=== PATIENT | female | born 1985 | race Caucasian/White ===

== ENCOUNTER → 2018-01-12 15:42 | Outpatient (CLI) | payer SELFPAY ==
[2018-01-16 11:19] LABS: QuantiFERON TB Negative (Negative)
== END ==
PROVIDERS: Visit Provider Registered Nurse
DX: Z11.1 Encounter for screening for respiratory tuberculosis (principal)
CPT/HCPCS: 36415; 86480

== ENCOUNTER → 2018-07-09 18:34 | Outpatient (CLI) | payer SELFPAY | PROVIDERS: Visit Provider Physician Assistant | DX: N89.8 Other specified noninflammatory disorders of vagina (principal) | CPT/HCPCS: 87210 ==

== ENCOUNTER → 2019-03-14 19:04 | Outpatient (CLI) | payer OTHER, SELFPAY | PROVIDERS: Visit Provider Physician Assistant | DX: N89.8 Other specified noninflammatory disorders of vagina (principal); R10.9 Unspecified abdominal pain; R35.8 Other polyuria | CPT/HCPCS: 87210 ==

== ENCOUNTER → 2019-05-16 07:37 | Outpatient (CLI) | payer OTHER, SELFPAY ==
[2019-05-16 08:38] LABS: Hematocrit 42.2 % (36-46); Hemoglobin 14.4 g/dL (12.0-16.0); Mean Corpuscular Hemoglobin 29.6 PG (26-34); Mean Corpuscular Volume 87.1 fL (80-100); Platelet Count 190 X10^3/uL (150-400); Red Blood Cell Count 4.85 X10^6/uL (4.0-5.2); White Blood Cell Count 5.9 X10^3/uL (4.5-11.0)
[2019-05-16 08:47] LABS: Appearance Urine UA CLEAR; Bilirubin Urine UA NEGATIVE (NEGATIVE); Color Urine UA YELLOW; Glucose Urine UA NEGATIVE (Negative); Ketones Urine UA NEGATIVE (NEGATIVE); Leukocyte Esterase Urine UA NEGATIVE (NEGATIVE); Nitrite Urine UA NEGATIVE (Negative); Occult Blood Urine UA NEGATIVE (Negative); Protein Urine UA NEGATIVE (Negative); Urobilinogen Urine UA 0.2 E.U./dL (0.2)
[2019-05-16 09:02] LABS: Bacteria Urine Moderate (10-30); Culture Indicated Urine Cult Not Indicated; RBC Urine 0-1/HPF (0-5/HPF); Squamous Epithelial Cell Urine 10-30 /HPF (0-5/HPF); WBC Urine 0-1/HPF (0-5/HPF)
[2019-05-16 09:17] LABS: Alanine Aminotransferase 16 IU/L (9-52); Albumin 4.2 g/dL (3.5-5.0); Albumin Globulin Ratio 1.3 (1.0-2.8); Alkaline Phosphatase 51 U/L (38-126); Aspartate Aminotransferase 20 IU/L (14-36); Bilirubin Total 1.2 mg/dL (0.2-1.3); Blood Urea Nitrogen 9 mg/dL (7-17); Calcium 9.6 mg/dL (8.4-10.2); Carbon Dioxide 26 mmol/L (22-32); Chloride 102 mmol/L (98-107); Cholesterol 162 mg/dL (140-199); Estimated Glomerular Filt Rate > 60.0 mL/min (>60); Globulin 3.2 g/dL (1.7-4.1); Glucose 87 mg/dL (70-100); HDL Cholesterol 61 mg/dL (40-60); HEMOLYSIS < 15 (0-50); LDL Cholesterol Calculated 89 mg/dL (<100); Potassium 3.9 mmol/L (3.4-5.1); Sodium 136 mmol/L (137-145); Total Protein 7.4 g/dL (6.3-8.2); Triglycerides 60 mg/dL (35-150)
[2019-05-16 09:32] LABS: Free T3, Triiodothyronine Free 3.66 pg/mL (2.77-5.27); Free T4, Direct Thyroxine 1.09 ng/dL (0.78-2.19)
[2019-05-16 09:39] LABS: Pregnancy Test Serum,Qual Positive (Negative)
[2019-05-16 09:46] LABS: Thyroid Stimulating Hormone 1.03 uIU/mL (0.47-4.68)
[2019-05-16 09:56] LABS: HCG Quantitative /Beta subunit 35039 mIU/mL
== END ==
PROVIDERS: Visit Provider Nurse Practitioner
DX: Z00.00 Encounter for general adult medical examination without abnormal findings (principal); Z34.90 Encounter for supervision of normal pregnancy, unspecified, unspecified trimester; Z32.01 Encounter for pregnancy test, result positive
CPT/HCPCS: 36415; 80053; 80061; 81001; 84439; 84443; 84481; 84702; 84703; 85027

== ENCOUNTER → 2019-05-20 16:04 | Outpatient (CLI) | payer OTHER, SELFPAY ==
[2019-05-20 17:42] LABS: HCG Quantitative /Beta subunit 54027 mIU/mL
== END ==
PROVIDERS: Visit Provider Nurse Practitioner
DX: O26.851 Spotting complicating pregnancy, first trimester (principal); Z32.01 Encounter for pregnancy test, result positive
CPT/HCPCS: 36415; 84702

== ENCOUNTER → 2019-05-22 15:48 | Outpatient (CLI) | payer OTHER, SELFPAY ==
[2019-05-22 18:50] LABS: HCG Quantitative /Beta subunit 75653 mIU/mL
== END ==
PROVIDERS: PCP Nurse Practitioner; Visit Provider Nurse Practitioner
DX: Z34.90 Encounter for supervision of normal pregnancy, unspecified, unspecified trimester (principal)
CPT/HCPCS: 36415; 84702

== ENCOUNTER → 2019-05-27 16:03 | Outpatient (CLI) | payer OTHER, SELFPAY ==
[2019-05-27 16:55] LABS: Add Manual Diff / Slide Review NO; Basophils Absolute Auto 0 /uL (0-100); Basophils Percent Auto 0.4 % (0-2); Eosinophils Absolute Auto 0 /uL (0-450); Eosinophils Percent Auto 0.3 % (2-4); Hematocrit 39.3 % (36-46); Hemoglobin 13.4 g/dL (12.0-16.0); Lymphocytes Absolute Auto 2100 /uL (1100-4500); Lymphocytes Percent Auto 29.7 % (25-40); Mean Corpuscular HGB Conc 34.1 % (30-36); Mean Corpuscular Hemoglobin 29.3 PG (26-34); Monocytes Absolute Auto 400 /uL (0-900); Monocytes Percent Auto 5.7 % (3-14); Neutrophils Absolute Auto 4600 /uL (1500-7000); Neutrophils Percent Auto 63.9 % (50-75); Platelet Count 204 X10^3/uL (150-400); Red Blood Cell Count 4.57 X10^6/uL (4.0-5.2); Red Cell Distribution Width 13.1 % (11.6-14.8); White Blood Cell Count 7.2 X10^3/uL (4.5-11.0)
[2019-05-27 16:58] LABS: Appearance Urine UA CLEAR; Bilirubin Urine UA NEGATIVE (NEGATIVE); Color Urine UA YELLOW; Glucose Urine UA NEGATIVE (Negative); Ketones Urine UA NEGATIVE (NEGATIVE); Leukocyte Esterase Urine UA NEGATIVE (NEGATIVE); Nitrite Urine UA NEGATIVE (Negative); Occult Blood Urine UA NEGATIVE (Negative); Protein Urine UA NEGATIVE (Negative); Specific Gravity Urine UA <=1.005 (1.000-1.035); Urobilinogen Urine UA 0.2 E.U./dL (0.2)
[2019-05-27 17:03] LABS: pH Urine UA 5.5 (4.5-8.0)
[2019-05-27 18:17] LABS: Hepatitis B Surface Antigen NEGATIVE s/c (NEGATIVE)
[2019-05-27 18:25] LABS: HIV 1 & 2 Ab/Ag 4th Gen Combo NEGATIVE (NEGATIVE); Hep C Virus Ab w/Reflex Quant NEGATIVE s/c (NEGATIVE)
[2019-05-30 13:51] LABS: RPR Screen Nonreactive (Nonreactive)
[2019-05-30 14:54] LABS: HSV 1 IgM Screen Negative (Negative); HSV 2 IgM Screen Negative (Negative)
== END ==
PROVIDERS: PCP Nurse Practitioner; Visit Provider Family Medicine
DX: Z34.01 Encounter for supervision of normal first pregnancy, first trimester (principal)
CPT/HCPCS: 36415; 80055; 81003; 86695; 86696; 86787; 86803; 86850; 86900; 86901; 87086; 87389

== ENCOUNTER → 2019-05-29 09:38 | Outpatient (CLI) | payer OTHER, SELFPAY ==
--- NOTE | 2019-05-29 09:39 | DI.US.S_ITS ---
PROCEDURE: US OB <= 14 WEEKS FETUS INDICATIONS: DATING AND VIABILITY OUTSIDE/PRIOR DATING DATA: Last menstrual period (LMP): 03/21/19. LMP-based estimated date of delivery (KRISTINA): 12/26/19. First dating scan (date and location): 05/29/19. Estimated date of delivery (KRISTINA) from first dating scan: 01/03/20. TECHNIQUE: Real-time scanning was performed of the fetus and maternal pelvic organs, with image documentation. Endovaginal scanning was also performed to better visualize the fetus and maternal ovaries. COMPARISON: None. FINDINGS: Embryo: Single living intrauterine gestation with crown-rump length measuring 2.1 cm. This correlates with approximately 8 weeks and 5 days gestational age. heart rate measures 171 beats per minute. Measurement variability in dating: +/- 4 weeks by LMP, +/- 7 days by mean sac diameter (use before 6 weeks gestation if crown-rump length not able to be measured), +/- 5 days by crown-rump length (up to 8 weeks 6 days gestation), +/- 7 days by crown-rump length (up to 13 weeks 6 days gestation). Maternal organs: Right ovary was not visualized. Left ovary appears normal. Limited images through the kidneys demonstrate no hydronephrosis. IMPRESSION: Single living intrauterine gestation with an estimated sonographic gestational age of approximately 8 weeks and 5 days. Recommend routine followup second trimester anatomic screening survey. Dictated by: Mauri Mari M.D. on 05/29/2019 at 13:39 Approved by: Muari Mari M.D. on 05/29/2019 at 13:42
== END ==
PROVIDERS: PCP Nurse Practitioner; Visit Provider Family Medicine
DX: Z34.01 Encounter for supervision of normal first pregnancy, first trimester (principal); Z3A.08 8 weeks gestation of pregnancy
CPT/HCPCS: 76801; 76817

== ENCOUNTER → 2019-07-30 15:23 | Outpatient (CLI) | payer OTHER, SELFPAY ==
[2019-08-12 10:35] LABS: AFP, Serum 52.4; Calc Gestational Age 17.6
[2019-08-12 10:36] LABS: hCG, MoM 1.26; hCG, Serum 19.6
[2019-08-12 10:37] LABS: Estriol, Free 1.28
[2019-08-12 10:38] LABS: Inhibin A, Dimeric 160
[2019-08-12 10:39] LABS: Cigarette Smoker NO; Donated Egg NO; Maternal Weight 143; Number of Fetuses 1; Previous Pregnancy Down Syndro NO
== END ==
PROVIDERS: PCP Nurse Practitioner; Visit Provider Family Medicine
DX: Z34.92 Encounter for supervision of normal pregnancy, unspecified, second trimester (principal); Z3A.16 16 weeks gestation of pregnancy
CPT/HCPCS: 36415; 82105; 82677; 84702; 86336

== ENCOUNTER → 2019-08-15 10:55 | Outpatient (CLI) | payer OTHER, SELFPAY ==
--- NOTE | 2019-08-15 10:57 | DI.US.S_ITS ---
PROCEDURE: US OB >= 14 WEEKS FETUS INDICATIONS: ANATOMY SCAN OUTSIDE/PRIOR DATING DATA: Last menstrual period (LMP): 03/21/19. LMP-based estimated date of delivery (KRISTINA): 12/26/19. First dating scan (date and location): 05/29/19. Estimated date of delivery (KRISTINA) from first dating scan: 01/03/20. TECHNIQUE: Real-time scanning was performed of the fetus, with image documentation and biometric measurements. COMPARISON: None. FINDINGS: General: A single living intrauterine gestation is present. Presentation: Vertex. Placenta: Placental position is anterior, and low-lying. Amniotic fluid index: 16.7 cm, normal range is 5-24 cm. heart rate: 150 beats per minute. Maternal cervical canal: 4.6 cm long. Normal lower limit is 2.5 cm. biometrics: Biparietal diameter: 20 weeks 6 days Head circumference: 20 weeks 1 day Abdominal circumference: 20 weeks 4 days Femur length: 19 weeks 5 days Estimated gestational age from initial scan: 19 weeks 6 days Composite gestational age from present scan: 20 weeks 2 days Estimated weight and percentile: 339 g; 66 percentile Measurement variability for biometric dating: +/- 7 days from 14 weeks to 15 weeks 6 days gestation, +/- 10 days from 16 weeks to 21 weeks 6 days gestation, +/- 2 weeks from 22 weeks to 27 weeks 6 days gestation, +/- 3 weeks for 28 weeks gestation or later. weight reference: 4500 g or EFW >90/95% is considered macrosomia or large for gestational age. EFW <10% is small for gestational age. EFW 5% or less is considered intra-uterine growth restriction. Anatomic survey: Neuro: Ventricles are non-dilated at less than 10 mm. Posterior fossa not well visualized. Nuchal skin fold: Normal at less than 6 mm between 14-21 weeks gestational age. Face: Nose and lips, facial profile are normal. Spine: No evidence for spina bifida. Heart: 4-chambered heart is present, with normal ventricular outflow tracts. Diaphragm: Diaphragm is intact. Stomach: Left-sided stomach is present. Kidneys: Mild pyelectasis of the left kidney with the renal pelvis measuring 4.8 mm. Cord: 3-vessel cord has orthotopic insertion. Bladder: Normal in size. Extremities: All 4 extremities identified. IMPRESSION: 1. Single living IUP redemonstrated and interval growth is normal. 2. Posterior fossa not well visualized. Followup recommended. 3. Mild left renal pyelectasis which can be assessed on followup examination. 4. Low-lying placenta. Dictated by: Rick Orantes [facility] Interpreted: Jen Bain MD on 08/15/2019 at 16:20 Approved by: Jen Bain M.D. on 08/15/2019 at 16:38
== END ==
PROVIDERS: PCP Nurse Practitioner; Visit Provider Family Medicine
DX: Z36.89 Encounter for other specified antenatal screening (principal); O99.89 Other specified diseases and conditions complicating pregnancy, childbirth and the puerperium; N13.30 Unspecified hydronephrosis; Z3A.20 20 weeks gestation of pregnancy
CPT/HCPCS: 76811

== ENCOUNTER → 2019-09-13 11:36 | Outpatient (CLI) | payer OTHER, SELFPAY ==
--- NOTE | 2019-09-13 11:37 | DI.US.S_ITS ---
PROCEDURE: US OB LIMITED INDICATIONS: FOLLOW UP PLACENTA, KIDNEYS, POSTERIOR FOSSA OUTSIDE/PRIOR DATING DATA: Last menstrual period (LMP): 03/21/19. LMP-based estimated date of delivery (KRISTINA): 12/26/19. First dating scan (date and location): 05/29/19. Estimated date of delivery (KRISTINA) from first dating scan: 01/03/20. TECHNIQUE: Real-time scanning was performed of the fetus, with image documentation. Endovaginal scanning: No COMPARISON: [facility], OB >= 14 WEEKS FETUS, 08/15/2019, 11:20. FINDINGS: A single living intrauterine gestation is present. Presentation: Vertex. Placenta: Placental position is anterior, without previa. Amniotic fluid index: 13.9 cm, normal range is 5-24 cm. heart rate: 143 beats per minute. Maternal cervical canal: 3.4 cm long. Normal lower limit is 2.5 cm. Estimated gestational age from initial scan: 24 weeks. Normal appearance of the posterior fossa and cerebellum. Mild left renal pyelectasis with a renal pelvis measuring 5 mm. IMPRESSION: 1. Single living IUP redemonstrated and today's exam demonstrates normal appearance of the posterior fossa and cerebellum. There is continued mild left renal pyelectasis and continued sonographic surveillance is recommended. 2. Low lying placenta has resolved. Dictated by: Rick Orantes [facility] Interpreted: Cory Vyas MD on 09/13/2019 at 15:19 Approved by: Cory Vyas M.D. on 09/13/2019 at 18:48
== END ==
PROVIDERS: PCP Nurse Practitioner; Referring Provider Family Medicine; Visit Provider Family Medicine
DX: O99.89 Other specified diseases and conditions complicating pregnancy, childbirth and the puerperium (principal); N13.30 Unspecified hydronephrosis; Z3A.24 24 weeks gestation of pregnancy
CPT/HCPCS: 76815

== ENCOUNTER → 2019-10-02 08:02 | Outpatient (CLI) | payer OTHER, SELFPAY ==
[2019-10-02 10:41] LABS: Hematocrit 37.2 % (36-46); Hemoglobin 12.4 g/dL (12.0-16.0)
[2019-10-02 11:39] LABS: GTT (PREG) 1 Hour PP 50gm Dose 85 mg/dL (76-139)
== END ==
PROVIDERS: PCP Nurse Practitioner; Referring Provider Family Medicine; Visit Provider Family Medicine
DX: Z34.90 Encounter for supervision of normal pregnancy, unspecified, unspecified trimester (principal); Z3A.26 26 weeks gestation of pregnancy
CPT/HCPCS: 36415; 82950; 85014; 85018

== ENCOUNTER → 2019-10-11 16:25 | Outpatient (CLI) | payer OTHER, SELFPAY | PROVIDERS: PCP Nurse Practitioner; Referring Provider Family Medicine; Visit Provider Family Medicine | DX: Z34.90 Encounter for supervision of normal pregnancy, unspecified, unspecified trimester (principal); Z67.31 Type AB blood, Rh negative | CPT/HCPCS: 36415; 86850 ==

== ENCOUNTER → 2019-11-08 09:01 | Outpatient (CLI) | payer OTHER, SELFPAY ==
[2019-11-13 09:08] LABS: QuantiFERON Mitogen Value >10.00 IU/mL (.); QuantiFERON Nil Value 0.02 IU/mL (.); QuantiFERON TB Gold Plus Negative (Negative); QuantiFERON TB1 Ag Value 0.02 IU/mL (.); QuantiFERON TB2 Ag Value 0.04 IU/mL (.)
== END ==
PROVIDERS: PCP Nurse Practitioner; Referring Provider Internal Medicine; Visit Provider Internal Medicine
DX: R76.11 Nonspecific reaction to tuberculin skin test without active tuberculosis (principal)
CPT/HCPCS: 36415; 86480

== ENCOUNTER → 2020-01-14 11:17 | Outpatient (CLI) | payer OTHER, SELFPAY ==
--- NOTE | 2020-01-14 | DI.US.S_ITS ---
PROCEDURE: US OB LIMITED INDICATIONS: DMITRIY OUTSIDE/PRIOR DATING DATA: Last menstrual period (LMP): 03/21/19. LMP-based estimated date of delivery (KRISTINA): 12/26/19. First dating scan (date and location): 05/29/19. Estimated date of delivery (KRISTINA) from first dating scan: 01/03/20. TECHNIQUE: Real-time scanning was performed of the fetus, with image documentation and biometric measurements. Endovaginal scanning: Not performed COMPARISON: [facility], OB >= 14 WEEKS FETUS, 08/15/2019, 11:20. [facility] OB <= 14 WEEKS FETUS, 05/29/2019, 10:33. [facility] OB LIMITED, 09/13/2019, 11:54. FINDINGS: General: A single living intrauterine gestation is present. Presentation: Vertex. Placenta: Placental position is anterior Amniotic fluid index: 9.5 cm, normal range is 5-24 cm. heart rate: 165 beats per minute. Maternal cervical canal: 2.9 cm long. Normal lower limit is 2.5 cm. Other: Not applicable. IMPRESSION: Single living intrauterine fetus in vertex presentation DMITRIY measures 9.5 cm Dictated by: Ross Gomez M.D. on 01/14/2020 at 12:56 Approved by: Ross Gomez M.D. on 01/14/2020 at 13:02
== END ==
PROVIDERS: PCP Nurse Practitioner; Referring Provider Midwife; Visit Provider Midwife
DX: Z36.89 Encounter for other specified antenatal screening (principal); Z3A.41 41 weeks gestation of pregnancy
CPT/HCPCS: 76815

== ENCOUNTER → 2020-03-28 14:45 | Outpatient (ROUT) | payer OTHER, SELFPAY ==
[2020-03-30 11:12] LABS: COVID19 Sendout Not Detected (Not Detected)
== END ==
PROVIDERS: PCP Family Medicine; Visit Provider Internal Medicine
DX: Z11.59 Encounter for screening for other viral diseases (principal)
CPT/HCPCS: 87635

== ENCOUNTER → 2022-06-18 13:21 | Outpatient (CLI) | payer OTHER, SELFPAY | PROVIDERS: PCP Family Medicine; Visit Provider Physician Assistant | DX: N39.0 Urinary tract infection, site not specified (principal); N89.8 Other specified noninflammatory disorders of vagina | CPT/HCPCS: 87077; 87086; 87147; 87210 ==

== ENCOUNTER 2023-06-06 11:56 | Emergency (ER) | payer OTHER, SELFPAY ==
[2023-06-06 12:09] VITALS: BP 149/83; PULSE 117; RESP 18; TEMP 37.4; O2SAT 100; BMI 21.6
[2023-06-06 12:47] VITALS: PULSE 89; O2SAT 98
[2023-06-06 12:49] VITALS: BP 142/90; PULSE 107; O2SAT 100
[2023-06-06 12:55] LABS: Add Manual Diff / Slide Review NO; Basophils Absolute Auto 0 /uL (0-100); Basophils Percent Auto 0.5 % (0-2); Eosinophils Absolute Auto 0 /uL (0-450); Eosinophils Percent Auto 0.1 % (2-4); Hematocrit 43.2 % (36-46); Hemoglobin 14.6 g/dL (12.0-16.0); Lymphocytes Absolute Auto 1300 /uL (1100-4500); Lymphocytes Percent Auto 22.2 % (25-40); Mean Corpuscular HGB Conc 33.7 % (30-36); Mean Corpuscular Hemoglobin 28.8 PG (26-34); Mean Corpuscular Volume 85.3 fL (80-100); Monocytes Absolute Auto 300 /uL (0-900); Monocytes Percent Auto 4.3 % (3-14); Neutrophils Absolute Auto 4300 /uL (1500-7000); Neutrophils Percent Auto 72.9 % (50-75); Platelet Count 222 X10^3/uL (150-400); Red Blood Cell Count 5.07 X10^6/uL (4.0-5.2); Red Cell Distribution Width 13.6 % (11.6-14.8)
[2023-06-06 13:00] VITALS: BP 149/90; PULSE 115; RESP 25; O2SAT 100
[2023-06-06 13:04] LABS: COVID19 -Nasal RAPID Negative (Negative)
[2023-06-06 13:08] LABS: Bacteria Urine Moderate (10-30); Culture Indicated Urine Specimen Cultured; RBC Urine None Seen (0-5/HPF); Squamous Epithelial Cell Urine 5-10 /HPF (0-5/HPF); WBC Urine 1-5/HPF (0-5/HPF)
--- NOTE | 2023-06-06 13:19 | ED_ITS ---
HPI - Dizziness General Chief Complaint: Dizziness Stated Complaint: dizzy/fast HR Time Seen by Provider: 06/06/23 12:48 Source: patient Mode of arrival: Ambulatory History of Present Illness HPI Narrative: 37 year old female with no reported past medical history presents with 2 days of intermittent lightheadedness and palpitations. Patient states that at various points throughout the day she can feel her heartbeat ?pounding? and she feels like she is about to pass out. She states that she will get ?tunnel vision? and feel very lightheaded. This improves after sitting down and resting. She went to walk-in clinic, but was referred to the emergency department. Currently asymptomatic. Heart rate elevated, patient states she does get anxious in healthcare settings. Related Data Home Medications Medication Instructions Recorded Confirmed prenat.vits,melina,[id number] 1 tab PO DAILY 05/27/19 09/21/22 Previous Rx's Medication Instructions Recorded valacyclovir 500 mg tablet 500 mg PO DAILY #90 tabs 07/25/22 cyclobenzaprine 5 mg tablet 5 mg PO TID PRN muscle spasm #20 09/21/22 tabs Allergies Allergy/AdvReac Type Severity Reaction Status Date / Time No Known Drug Allergies Allergy Verified 06/06/23 12:07 Review of Systems Review of Systems Narrative: CONSTITUTIONAL- Denies: fever, chills, fatigue HEENT- Denies: sore throat, nosebleed, vision changes RESPIRATORY- Denies: shortness of breath, cough, wheezing CARDIAC-reports: Palpitations Denies: chest pain, edema, orthopnea GI- Denies: abdominal pain, nausea, vomiting, constipation, diarrhea - Denies: frequency, dysuria, hematuria, flank pain MSK- Denies: extremity pain, extremity swelling, joint pain, joint swelling SKIN- Denies: rash, itching, burn, swelling NEUROLOGICAL-reports: Lightheadedness Denies: headache, numbness, weakness, dizziness PSYCHIATRIC- Denies: anxiety, depression, suicidal ideation, homicidal ideation Patient History Medical History Chlamydia Genital herpes HSV (herpes simplex virus) infection (~2005) Positive TB test Trichomonosis Umbilical hernia Surgical History H/O umbilical hernia repair (~1991) Family History Mother Hx of cardiac arrhythmia Social History (Updated 05/14/19 @ 14:02 by Kandy Harrington CMA) marital status: household members: spouse and family pets and animals: Yes education level: college occupational status: employed current occupational exposures/hazards: 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) seatbelt use: always helmet use: Yes water heater temp set < 120 deg: Yes working smoke detector in home: Yes fire extinguisher in home: Yes carbon monox detector in home: No firearms in home: No do you feel safe at home: Yes Smoking Status: Never smoker alcohol intake: current substance use type: does not use during the past year weight has: remained stable well-balanced diet: daily or most days daily servings fruits/ve-4 caffeine: Yes (1-2 DRINKS PER DAY; NEVER TO SODA) eating out: rarely or never Type(s) of exercise: walking, bicycling, other and yoga frequency: 3-4 times per week duration: 45-60 minutes/day Smoking Status: Never smoker Substance Use Type: does not use Exam Narrative Exam Narrative: Const: Awake, alert, no acute distress, nontoxic appearing Eyes: PERRL, EOMI, conjunctiva normal ENT: Atraumatic, dentition normal, mucous membranes moist Cardiac: Tachycardia, regular rhythm RESP: unlabored, clear bilaterally, no wheezing GI: Atraumatic, soft, nontender, nondistended, no rebound, no guarding MSK: Atraumatic, full range of motion, pulses equal Skin: Warm, Dry, intact, no rashes Neuro: AO x3, CN II-XII grossly intact, moves all extremities Psych: affect normal, mood normal, not suicidal, not homicidal Initial Vital Signs Initial Vital Signs: Vital Signs Temperature 99.4 F 06/06/23 12:09 Pulse Rate 117 H 06/06/23 12:09 Respiratory Rate 18 06/06/23 12:09 Blood Pressure 149/83 H 06/06/23 12:09 Pulse Oximetry 100 06/06/23 12:09 Oxygen Delivery Method Room Air 06/06/23 12:09 Scores PERC Score Age greater than or equal to 50 years: No Heart rate greater than or equal to 100 bpm: Yes Room Air O2 Sat less than 95%: No Unilateral leg swelling: No Recent trauma or surgery: No Hemoptysis: No Prior PE or DVT: No Hormone Use: No Total PERC Score: 1 Course Course Course Narrative: Well-appearing patient with intermittent palpitations and lightheadedness. Heart rate is currently mildly elevated, however patient reports anxiety in healthcare settings and she is currently slightly nervous that she was directed to the emergency department. Can not rule out with PERC rule due to elevated heart rate, we will order D-dimer, however with lack of other PE risk factors overall considered low risk. Orders Ordered: ED Orders 06/06/23 12:25 EKG-12 Lead Stat 06/06/23 12:37 Basic Metabolic Panel Stat COVID19 -Nasal RAPID Stat Complete Blood Count AUTO DIFF Stat D Dimer Stat TSH [Thyroid Stimulating Hormone] Stat Troponin I Stat 06/06/23 12:43 Urine Culture Stat Urine Microscopic Stat Reevaluation(s) Reevaluation #1: Laboratory work is reviewed, unremarkable. D-dimer negative. TSH within normal limits. Chest x-ray negative for acute findings. Patient resting comfortably in ED bed, when at rest her heart rate dropped to 70 beats per minute, regular, no abnormality seen on cardiac rehabilitation specialist. Patient informed of labs and imaging results at bedside, uncertain etiology of patient's palpitations, however stable for discharge with routine follow up with PCP. ED return precautions discussed at bedside. Patient expressed understanding of the plan and is in agreement at this time. All questions answered at the time of discharge. Vital Signs Vital signs: Vital Signs - 8 hr 06/06/23 12:09 06/06/23 12:47 06/06/23 12:49 Temperature 99.4 F Pulse Rate 117 H 89 107 H Respiratory Rate 18 Blood Pressure 149/83 H Pulse Oximetry 100 98 100 Oxygen Delivery Method Room Air 06/06/23 12:49 06/06/23 13:00 06/06/23 13:00 Temperature Pulse Rate 115 H Respiratory Rate 25 H Blood Pressure 142/90 H 149/90 H Pulse Oximetry 100 Oxygen Delivery Method 06/06/23 13:30 06/06/23 13:30 06/06/23 14:00 Temperature Pulse Rate 83 94 H Respiratory Rate 24 23 Blood Pressure 130/63 Pulse Oximetry 100 99 Oxygen Delivery Method MDM - Dizziness Differential Diagnosis Differential diagnosis: Likely benign paroxysmal positional vertigo, orthostatic hypotension and other (hyperthyroidism) Lab Data 06/06/23 12:37 06/06/23 12:37 Labs: Lab Results 06/06/23 06/06/23 Range/Units 12:37 12:43 WBC 6.0 (4.5-11.0) X10^3/uL RBC 5.07 (4.0-5.2) X10^6/uL Hgb 14.6 (12.0-16.0) g/dL Hct 43.2 (36-46) % MCV 85.3 (80-100) fL MCH 28.8 (26-34) PG MCHC 33.7 (30-36) % RDW 13.6 (11.6-14.8) % Plt Count 222 (150-400) X10^3/uL Neut % (Auto) 72.9 (50-75) % Lymph % (Auto) 22.2 L (25-40) % [place] % (Auto) 4.3 (3-14) % Eos % (Auto) 0.1 L (2-4) % Baso % (Auto) 0.5 (0-2) % Neut # (Auto) 4300 (5617-6854) /uL Lymph # (Auto) 1300 (4264-3352) /uL [place] # (Auto) 300 (0-900) /uL Eos # (Auto) 0 (0-450) /uL Baso # (Auto) 0 (0-100) /uL D-Dimer 246 (<500) ng/ml Sodium 138 (137-145) mmol/L Potassium 3.8 (3.4-5.1) mmol/L Chloride 105 (98-107) mmol/L Carbon Dioxide 23 (22-32) mmol/L BUN 13 (7-17) mg/dL Creatinine 0.53 (0.52-1.04) mg/dL Estimated GFR > 60 (>60) mL/min BUN/Creatinine Ratio 24.5 H (6-22) Glucose 117 H (70-100) mg/dL Calcium 9.9 (8.4-10.2) mg/dL Troponin I < 0.012 (0.01-0.034) ng/mL TSH 2.10 (0.47-4.68) uIU/mL Urine RBC None seen (0-5/HPF) Urine WBC 1-5/hpf (0-5/HPF) Ur Squamous Epith Cells 5-10 /hpf H (0-5/HPF) Urine Bacteria Moderate (10-30) H (None) Ur Culture Indicated? Specimen cultured SARS-CoV-2 (PCR) Negative (Negative) Point of Care Testing Test Results Negative Urine Dip Bedside Urine Glucose Negative Bedside Urine Bilirubin - Negative Bedside Urine Ketone - Negative Urine Specific [place] 1.015 Bedside Urine Occult Blood +/- Bedside Urine pH 6.0 Bedside Urine Protein - Negative Bedside Urine Urobilinogen - Negative Bedside Urine Nitrite - Negative Bedside Urine Leukocytes + 70 Esterase Discharge Plan Departure Patient Disposition: Home Clinical Impression: Palpitations Instructions: DI for Palpitations Prescriptions: No Action prenat.vits,melina,[id number] Tablet 1 tab PO DAILY cyclobenzaprine 5 mg tablet 5 mg PO TID PRN (Reason: muscle spasm) Qty: 20 0RF valacyclovir 500 mg tablet 500 mg PO DAILY Qty: 90 0RF Rx Instructions: Take one tablet by mouth daily after completing higher dose therapy for 7 days. Referrals: Amy Jarvis DO [Physician] - Miscellaneous,Doctor MD [Primary Care Provider] - Stand Alone Forms: Patient Portal/API
[2023-06-06 13:30] VITALS: BP 130/63; PULSE 83; RESP 24; O2SAT 100
[2023-06-06 13:33] LABS: D Dimer 246 ng/ml (<500)
[2023-06-06 14:00] VITALS: PULSE 94; RESP 23; O2SAT 99
[2023-06-06 14:03] LABS: BUN Creatinine Ratio 24.5 (6-22); Blood Urea Nitrogen 13 mg/dL (7-17); Calcium 9.9 mg/dL (8.4-10.2); Carbon Dioxide 23 mmol/L (22-32); Chloride 105 mmol/L (98-107); Estimated Glomerular Filt Rate > 60 mL/min (>60); Glucose 117 mg/dL (70-100); HEMOLYSIS 39 (0-50); Potassium 3.8 mmol/L (3.4-5.1); Sodium 138 mmol/L (137-145)
[2023-06-06 14:15] LABS: Troponin I < 0.012 ng/mL (0.01-0.034)
== END 2023-06-06 14:33 | disposition home or self-care (01) ==
PROVIDERS: Emergency Provider Emergency Medicine
DX: R00.2 Palpitations (principal); Z20.822 Contact with and (suspected) exposure to COVID-19
CPT/HCPCS: 36415; 80048; 81003; 81015; 81025; 84443; 84484; 85025; 85379; 87086; 87635; 93005; 99284; C9803

== ENCOUNTER 2023-06-14 13:00 | Emergency (ER) | payer OTHER, SELFPAY ==
[2023-06-14 13:03] VITALS: BP 162/100; PULSE 120; RESP 16; TEMP 36.9; O2SAT 100; BMI 21.6
--- NOTE | 2023-06-14 13:58 | ED.ARRPALP ---
HPI - Arrhythmia/Palpitations General Chief Complaint: Arrhythmia/Palpitations Stated Complaint: dizzy/high bp 165/111 pulse 126 shivering Time Seen by Provider: 06/14/23 13:43 Source: patient Mode of arrival: Ambulatory Limitations: no limitations History of Present Illness HPI narrative: Otherwise healthy 37-year-old female who is here for evaluation of being dizzy, shivering, increased blood pressure and palpitations. She states the symptoms happened while she was at work today. 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 This is very similar to symptoms she had 1 week ago where she had an unremarkable workup here in the ER and was told to follow up with her primary doctor. She does admit that there is anxiety component to her symptoms. She is currently feel like her heart is beating fast but better than what it was. Related Data Home Medications Medication Instructions Recorded Confirmed prenat.vits,melina,[id number] 1 tab PO DAILY 05/27/19 09/21/22 Previous Rx's Medication Instructions Recorded valacyclovir 500 mg tablet 500 mg PO DAILY #90 tabs 07/25/22 cyclobenzaprine 5 mg tablet 5 mg PO TID PRN muscle spasm #20 09/21/22 tabs Allergies Allergy/AdvReac Type Severity Reaction Status Date / Time No Known Drug Allergies Allergy Verified 06/14/23 13:07 Review of Systems Constitutional Constitutional: Reports system reviewed and no additional complaints, except as documented Cardiovascular Cardiovascular: Reports system reviewed and no additional complaints, except as documented Respiratory Respiratory: Reports system reviewed and no additional complaints, except as documented Gastrointestinal Gastrointestinal: Reports system reviewed and no additional complaints, except as documented Psychiatric Psychiatric: Reports system reviewed and no additional complaints, except as documented Patient History Medical History Trichomonosis Chlamydia Genital herpes Umbilical hernia Positive TB test HSV (herpes simplex virus) infection (~2005) Surgical History H/O umbilical hernia repair (~1991) Family History Mother Hx of cardiac arrhythmia Social History marital status: household members: spouse and family pets and animals: Yes education level: college occupational status: employed current occupational exposures/hazards: No ([employer]) seatbelt use: always helmet use: Yes water heater temp set < 120 deg: Yes working smoke detector in home: Yes fire extinguisher in home: Yes carbon monox detector in home: No firearms in home: No do you feel safe at home: Yes Smoking Status: Never smoker alcohol intake: current substance use type: does not use during the past year weight has: remained stable well-balanced diet: daily or most days daily servings fruits/ve-4 caffeine: Yes (1-2 DRINKS PER DAY; NEVER TO SODA) eating out: rarely or never Type(s) of exercise: walking, bicycling, other and yoga frequency: 3-4 times per week duration: 45-60 minutes/day Smoking Status: Never smoker Substance Use Type: does not use Exam Initial Vital Signs Initial Vital Signs: Vital Signs Temperature 98.4 F 06/14/23 13:03 Pulse Rate 120 H 06/14/23 13:03 Respiratory Rate 16 06/14/23 13:03 Blood Pressure 162/100 H 06/14/23 13:03 Pulse Oximetry 100 06/14/23 13:03 Oxygen Delivery Method Room Air 06/14/23 13:03 Const General: cooperative, comfortable and No ill appearing HENMT Head: normal to inspection and normocephalic Resp Effort & Inspection: normal respiratory effort Auscultation: clear to auscultation bilaterally Cardio Rhythm: regular rhythm GI Inspection: normal to inspection Skin General: no rashes or lesions noted Neuro General: patient alert, patient awake, patient oriented x3 and moves all extremities Course Orders Ordered: ED Orders 06/14/23 13:07 EKG-12 Lead Stat 06/14/23 13:58 Consult to [facility] [employer] [facility] [employer] Stat Discontinued Medications Lorazepam (Lorazepam 0.5 Mg Tablet) 1 mg PO NOW ONE Stop: 06/14/23 13:59 Last Admin: 06/14/23 14:37 Dose: Not Given Documented By: MARK Vital Signs Vital signs: Vital Signs - 8 hr 06/14/23 13:03 06/14/23 14:27 Temperature 98.4 F Pulse Rate 120 H 83 Respiratory Rate 16 16 Blood Pressure 162/100 H 131/85 Pulse Oximetry 100 99 Oxygen Delivery Method Room Air Room Air MDM - Arrhythmia/Palpitations ECG Data Attestation: I personally reviewed and interpreted this ECG as follows: Interpretation: Sinus tachycardia Ventricular rate 109 Normal axis Normal QRS Nonspecific ST T wave changes MDM Narrative Medical decision making narrative: Patient declined further workup to include an IV and blood work here in the ER. Offered Ativan but patient states she would like to return to work and she does not have a ride home. Social work was able to speak with the patient. We were able to secure an appointment tomorrow with primary provider. Will discharge patient home with follow-up instructions. Discharge Plan Departure Patient Disposition: Home Clinical Impression: Palpitations Activity Restrictions/Additional Instructions: You do have an appointment tomorrow 06/15 with Yesica CORONA at 4:15 in the afternoon. Recommend that you continue any medications as directed. You can talk with your primary provider about the indications for a Holter monitor. Return to the emergency department for new symptoms. Prescriptions: No Action prenat.vits,melina,[id number] Tablet 1 tab PO DAILY cyclobenzaprine 5 mg tablet 5 mg PO TID PRN (Reason: muscle spasm) Qty: 20 0RF valacyclovir 500 mg tablet 500 mg PO DAILY Qty: 90 0RF Rx Instructions: Take one tablet by mouth daily after completing higher dose therapy for 7 days. Referrals: Miscellaneous,Doctor, MD [Primary Care Provider] - Stand Alone Forms: Patient Portal/API
--- NOTE | 2023-06-14 14:21 | CM.SWNOTE ---
ED CNC MAINTENANCE TECHNICIAN Note CNC MAINTENANCE TECHNICIAN receives consult due to patient's 2nd presentation in a week due to dizziness & palpitations. Patient is 37 y/o female who presents to ED due to episode of high heart rate and dizziness while at work. Patient works [employer] and [employer]. Patient has new PCP appt scheduled with Dr. Nidia Drake for 07/25/23. CNC MAINTENANCE TECHNICIAN enters room to meet with patient, patient presents as A/Ox4. When asked about life stressors, patient presents as tearful and states she is emotional because she is currently menstruating. Patient endorses she has family members in [place] [facility] during the war and she is constantly worrying about them but subsides her worry most days. Patient states she has contact with family but does not want to cause them more worry. Patient endorses she has support from spouse and mother in law, patient states she is safe at home. CNC MAINTENANCE TECHNICIAN offers to schedule sooner PCP appt for patient, patient indicates agreement. CNC MAINTENANCE TECHNICIAN [email or web address] and schedules ED f/u with Yesica Waddell PA-C for tomorrow 06/15 at 4:15pm check in. CNC MAINTENANCE TECHNICIAN provides patient with this information, patient indicates understanding. Patient denies any further CNC MAINTENANCE TECHNICIAN needs at this time. Plan: Patient to d/c to home upon medical clearance, patient to f/u with PCP office appt tomorrow. CARMEN Pond
[2023-06-14 14:27] VITALS: BP 131/85; PULSE 83; RESP 16; O2SAT 99
== END 2023-06-14 14:47 | disposition home or self-care (01) ==
PROVIDERS: Emergency Provider Emergency Medicine
DX: R00.2 Palpitations (principal)
CPT/HCPCS: 93005; 99281; 99282

== ENCOUNTER → 2023-07-03 09:39 | Outpatient (CLI) | payer OTHER, SELFPAY | PROVIDERS: Referring Provider Physician Assistant; Visit Provider Physician Assistant | DX: R00.2 Palpitations (principal) | CPT/HCPCS: 93246 ==

== ENCOUNTER → 2025-02-13 14:54 | Outpatient (CLI) | payer OTHER, MEDICAID, SELFPAY | PROVIDERS: PCP Family Medicine; Referring Provider Family Medicine; Visit Provider Family Medicine | DX: Z01.84 Encounter for antibody response examination (principal) | CPT/HCPCS: 36415; 86707 ==